=== PATIENT | male | born 1960 | race Caucasian/White ===

== ENCOUNTER 2016-11-23 09:25 | Emergency (ER) | payer OTHER ==
[2016-11-23 09:41] VITALS: TEMP 98.9
--- NOTE | 2016-11-23 09:51 | ED ---
URI HPI - General Chief Complaint: Upper Respiratory Infection Stated Complaint: cough Time Seen by Provider: 11/23/16 09:43 Source: patient, RN notes reviewed Mode of arrival: ambulatory Limitations: no limitations - History of Present Illness Initial Comments: 56-year-old male presents emergency Department chief complaint cough and congestion. Patient states since it lasted for days. Patient states that he primarily a sinus congestion states he has a cough which is worse at nighttime. Denies any shortness of breath or any chest pain. Denies nausea, vomiting diarrhea constipation. Patient states she's been taking some Robitussin with some relief. Patient denies any ear pain or sore throat. Patient states the drainage is clear to yellowish. Patient denies fever, chills. - Related Data Home Medications Medication Instructions Recorded Confirmed Atorvastatin [Lipitor] 40 mg PO HS 06/28/15 06/30/15 Carvedilol [Coreg] 3.125 mg PO BID 06/28/15 06/30/15 Furosemide [Lasix] 20 mg PO DAILY 06/28/15 06/30/15 Lisinopril [Zestril] 10 mg PO DAILY 06/28/15 06/30/15 Previous Rx's Medication Instructions Recorded Aspirin 81 mg PO DAILY #30 chew 08/05/14 Spironolactone [Aldactone] 50 mg PO DAILY #30 tab 08/05/14 Amoxicillin/Potassium Clav 1 tab PO Q12HR #20 tab 11/23/16 [Augmentin 875-125 Tablet] methylPREDNISolone [Medrol Dose 4 mg PO DIRECTED #1 pack 11/23/16 Pack] Allergies Allergy/AdvReac Type Severity Reaction Status Date / Time No Known Allergies Allergy Verified 11/23/16 09:38 Review of Systems ROS Statement: Those systems with pertinent positive or pertinent negative responses have been documented in the HPI. ROS Other: All systems not noted in ROS Statement are negative. Past Medical History Past Medical History: No Reported History Additional Past Medical History / Comment(s): see Dr Mikael Mariee&Samson, History of Any Multi-Drug Resistant Organisms: None Reported Past Surgical History: Heart Catheterization, Hernia Repair Additional Past Surgical History / Comment(s): inguinal hernia repair, esophageal dilation, defibrillator Past Anesthesia/Blood Transfusion Reactions: No Reported Reaction Past Psychological History: No Psychological Hx Reported Smoking Status: Never smoker Past Alcohol Use History: Occasional Past Drug Use History: None Reported - Past Family History Mother Additional Family Medical History / Comment(s): mother had stent placed in 2006 Father Family Medical History: Cancer General Exam Limitations: no limitations General appearance: alert, in no apparent distress Head exam: Present: atraumatic, normocephalic, normal inspection Eye exam: Present: normal appearance, PERRL, EOMI. Absent: scleral icterus, conjunctival injection, periorbital swelling ENT exam: Present: normal oropharynx, mucous membranes moist, TM's normal bilaterally, normal external ear exam. Absent: normal exam (Rhinorrhea) Neck exam: Present: normal inspection, full ROM. Absent: tenderness, meningismus, lymphadenopathy Respiratory exam: Present: normal lung sounds bilaterally. Absent: respiratory distress, wheezes, rales, rhonchi, stridor Cardiovascular Exam: Present: regular rate, normal rhythm, normal heart sounds. Absent: systolic murmur, diastolic murmur, rubs, gallop, clicks Neurological exam: Present: alert, oriented X3, CN II-XII intact Skin exam: Present: warm, dry, intact, normal color. Absent: rash Course Vital Signs 11/23/16 09:38 Temperature 98.9 F Pulse Rate 87 Respiratory 18 Rate Blood Pressure 104/69 O2 Sat by Pulse 96 Oximetry Medical Decision Making - Medical Decision Making 56-year-old male presented for cough and congestion. Patient give for acute sinusitis and acute bronchitis. Patient was discharged with antibiotics, steroids. Return parameters discussed. Disposition Clinical Impression: Bronchitis, Sinusitis Disposition: HOME SELF-CARE Condition: Stable Instructions: Upper Respiratory Infection (ED) Additional Instructions: Please return to the Emergency Department if symptoms worsen or any other concerns. Prescriptions: Amoxicillin/Potassium Clav [Augmentin 875-125 Tablet] 1 tab PO Q12HR #20 tab methylPREDNISolone [Medrol Dose Pack] 4 mg PO DIRECTED #1 pack Time of Disposition: 10:14
--- NOTE | 2016-11-23 10:12 | XR ---
EXAMINATION TYPE: XR chest 2V DATE OF EXAM: 11/23/2016 10:00 AM HISTORY: Cough/pain. REFERENCE: Previous study dated 08/04/2014/. FINDINGS: The patient device projects over the left lower chest. The heart is mildly enlarged. There is scarring or atelectasis at the left lung base. The right lung is clear. Pleural spaces are clear. IMPRESSION: 1. CARDIOMEGALY. 2. SCARRING VERSUS ATELECTASIS LEFT LUNG BASE.
[2016-11-23 10:31] VITALS: BP 113/77; PULSE 65; RESP 16
== END 2016-11-23 10:31 | disposition home or self-care (01) ==
LOC: EC 09:25
DX: J20.9 Acute bronchitis, unspecified (principal); J01.90 Acute sinusitis, unspecified; Z79.899 Other long term (current) drug therapy; Z98.61 Coronary angioplasty status
CPT/HCPCS: 71020; 99283

== ENCOUNTER 2018-08-28 14:21 | Emergency (ER) | payer BC, OTHER ==
[2018-08-28 14:56] VITALS: RESP 18
[2018-08-28] MEDS ORDERED: SODIUM CHLORIDE 0.9% 1,000 ML IV STA (15:57)
[2018-08-28] MEDS ORDERED: ONDANSETRON 4 MG/2 ML VIAL IVP STA (15:58)
--- NOTE | 2018-08-28 16:45 | ED ---
Nausea/Vomiting/Diarrhea HPI - General Chief complaint: Nausea/Vomiting/Diarrhea Stated complaint: Diarrhea Time Seen by Provider: 08/28/18 15:24 Source: patient, RN notes reviewed, old records reviewed Mode of arrival: ambulatory Limitations: no limitations - History of Present Illness Initial comments: Patient is a 57-year-old male presents emergency Department chief complaint of nausea and vomiting 2 days. Patient had diarrhea for the past week. He states he also of diarrhea today. Patient reports that he has no abdominal pain. Patient is concerned because he does have a cardiac history that if his electrolytes are change due to dehydration that could affect his heart. Patient reports that he has no chest pain or shortness of breath. Patient denies any fevers or chills. No history of traveling or sick contacts that he is aware of. No history of gastrointestinal illnesses such as Crohn's or ulcerative colitis. No bloody diarrhea and no bloody emesis was noted. Patient denies any recent fever, chills, shortness of breath, chest pain, back pain, numbness or tingling, dysuria or hematuria, headaches or visual changes , or any other current symptoms - Related Data Home Medications Medication Instructions Recorded Confirmed Atorvastatin [Lipitor] 40 mg PO HS 06/28/15 08/28/18 Furosemide [Lasix] 20 mg PO DAILY 06/28/15 08/28/18 Lisinopril [Zestril] 10 mg PO DAILY 06/28/15 08/28/18 Carvedilol [Coreg] 3.125 mg PO BID 08/28/18 08/28/18 Spironolactone 50 mg PO DAILY 08/28/18 08/28/18 Previous Rx's Medication Instructions Recorded Aspirin 81 mg PO DAILY #30 chew 08/05/14 Dicyclomine [Bentyl] 10 mg PO TID #12 capsule 08/28/18 Ondansetron [Zofran ODT] 4 mg PO Q8HR #14 tab 08/28/18 Allergies Allergy/AdvReac Type Severity Reaction Status Date / Time No Known Allergies Allergy Verified 08/28/18 16:46 Review of Systems ROS Statement: Those systems with pertinent positive or pertinent negative responses have been documented in the HPI. ROS Other: All systems not noted in ROS Statement are negative. Past Medical History Past Medical History: No Reported History Additional Past Medical History / Comment(s): see Dr Mikael Mariee&P, History of Any Multi-Drug Resistant Organisms: None Reported Past Surgical History: Heart Catheterization, Hernia Repair Additional Past Surgical History / Comment(s): inguinal hernia repair, esophageal dilation, defibrillator Past Anesthesia/Blood Transfusion Reactions: No Reported Reaction Past Psychological History: No Psychological Hx Reported Smoking Status: Never smoker Past Alcohol Use History: Occasional Past Drug Use History: None Reported - Past Family History Mother Additional Family Medical History / Comment(s): mother had stent placed in 2006 Father Family Medical History: Cancer General Exam - General Exam Comments Initial Comments: 57-year-old male. Alert and oriented. No acute distress. Limitations: no limitations General appearance: alert, in no apparent distress Head exam: Present: atraumatic, normocephalic, normal inspection Eye exam: Present: normal appearance, PERRL, EOMI. Absent: scleral icterus, conjunctival injection, periorbital swelling ENT exam: Present: normal exam, mucous membranes moist Neck exam: Present: normal inspection. Absent: tenderness, meningismus, lymphadenopathy Respiratory exam: Present: normal lung sounds bilaterally. Absent: respiratory distress, wheezes, rales, rhonchi, stridor Cardiovascular Exam: Present: regular rate, normal rhythm, normal heart sounds. Absent: systolic murmur, diastolic murmur, rubs, gallop, clicks GI/Abdominal exam: Present: soft, normal bowel sounds. Absent: distended, tenderness, guarding, rebound, rigid Extremities exam: Present: normal inspection, full ROM, normal capillary refill. Absent: tenderness, pedal edema, joint swelling, calf tenderness Back exam: Present: normal inspection Neurological exam: Present: alert, oriented X3, CN II-XII intact Psychiatric exam: Present: normal affect, normal mood Skin exam: Present: warm, dry, intact, normal color. Absent: rash Course Vital Signs 08/28/18 14:54 Temperature 98 F Pulse Rate 83 Respiratory 18 Rate Blood Pressure 113/78 O2 Sat by Pulse 95 Oximetry Medical Decision Making - Medical Decision Making Patient's a 57-year-old male presents with vomiting episode today, but complains of no abdominal pain. He's had diarrhea for the past week. He's had no diarrhea episodes while in the emergency room. The second Patient given a liter of fluids, and Zofran. Blood work was obtained. Blood work was reviewed and unremarkable. Has no other symptoms or complaints at this time. Discussed at this time Patient will be given a prescription for Bentyl to help with diarrhea as well as Zofran for vomiting episodes. Patient has a close follow- up with primary care provider. All questions answered. - Lab Data Result diagrams: 08/28/18 16:20 08/28/18 16:20 Lab Results 08/28/18 08/28/18 08/28/18 Range/Units 16:20 16:20 16:20 WBC 7.6 (3.8-10.6) k/uL RBC 4.65 (4.30-5.90) m/uL Hgb 14.6 (13.0-17.5) gm/dL Hct 42.9 (39.0-53.0) % MCV 92.1 (80.0-100.0) fL MCH 31.3 (25.0-35.0) pg MCHC 34.0 (31.0-37.0) g/dL RDW 13.4 (11.5-15.5) % Plt Count 160 (150-450) k/uL Neutrophils % 74 % Lymphocytes % 14 % Monocytes % 6 % Eosinophils % 4 % Basophils % 0 % Neutrophils # 5.7 (1.3-7.7) k/uL Lymphocytes # 1.1 (1.0-4.8) k/uL Monocytes # 0.4 (0-1.0) k/uL Eosinophils # 0.3 (0-0.7) k/uL Basophils # 0.0 (0-0.2) k/uL Sodium 138 (137-145) mmol/L Potassium 4.3 (3.5-5.1) mmol/L Chloride 105 (98-107) mmol/L Carbon Dioxide 24 (22-30) mmol/L Anion Gap 9 mmol/L BUN 21 H (9-20) mg/dL Creatinine 0.87 (0.66-1.25) mg/dL Est GFR (CKD-EPI)AfAm >90 (>60 ml/min/1.73 sqM) Est GFR (CKD-EPI)NonAf >90 (>60 ml/min/1.73 sqM) Glucose 115 H (74-99) mg/dL Calcium 9.2 (8.4-10.2) mg/dL Total Bilirubin 1.6 H (0.2-1.3) mg/dL AST 70 H (17-59) U/L ALT 40 (21-72) U/L Alkaline Phosphatase 64 (38-126) U/L Total Protein 6.9 (6.3-8.2) g/dL Albumin 4.0 (3.5-5.0) g/dL Amylase 54 (30-110) U/L Lipase 42 (23-300) U/L Urine Color Yellow Urine Appearance Clear (Clear) Urine pH 5.5 (5.0-8.0) Ur Specific [place] 1.028 (1.001-1.035) Urine Protein Trace H (Negative) Urine Glucose (UA) Negative (Negative) Urine Ketones Negative (Negative) Urine Blood Negative (Negative) Urine Nitrite Negative (Negative) Urine Bilirubin Negative (Negative) Urine Urobilinogen 2.0 (<2.0) mg/dL Ur Leukocyte Esterase Negative (Negative) Disposition Clinical Impression: Nausea & vomiting, Diarrhea Disposition: HOME SELF-CARE Condition: Good Instructions: Acute Nausea and Vomiting (ED), Acute Diarrhea (ED) Additional Instructions: Patient has a rest, follow-up with primary care provider. Take medications as prescribed. Return to emergency department if any alarming signs or symptoms occur. Prescriptions: Dicyclomine [Bentyl] 10 mg PO TID #12 capsule Ondansetron [Zofran ODT] 4 mg PO Q8HR #14 tab Is patient prescribed a controlled substance at d/c from ED?: No Referrals: None,Stated [Primary Care Provider] - 1-2 days Symone Hall MD [STAFF PHYSICIAN] - 1-2 days Time of Disposition: 17:10
[2018-08-28 16:51] LABS: Appearance,Urine Clear (Clear); Bilirubin,Urine Negative (Negative); Blood,Urine Negative (Negative); Color,Urine Yellow; Glucose,Urine (UA) Negative (Negative); Ketones,Urine Negative (Negative); Leukocyte Esterase,Urine Negative (Negative); Nitrite,Urine Negative (Negative); PH, Urine 5.5 (5.0-8.0); Protein,Urine Trace (Negative); Specific Gravity,Urine 1.028 (1.001-1.035)
[2018-08-28 17:00] LABS: ALT 40 U/L (21-72); AST 70 U/L (17-59); Alkaline Phosphatase 64 U/L (38-126); Amylase 54 U/L (30-110); Anion Gap 9 mmol/L; Blood Urea Nitrogen 21 mg/dL (9-20); Calcium 9.2 mg/dL (8.4-10.2); Carbon Dioxide 24 mmol/L (22-30); Chloride 105 mmol/L (98-107); Glucose 115 mg/dL (74-99); Lipase 42 U/L (23-300); Potassium 4.3 mmol/L (3.5-5.1); Sodium 138 mmol/L (137-145); Total Bilirubin 1.6 mg/dL (0.2-1.3); Total Protein 6.9 g/dL (6.3-8.2)
[2018-08-28 17:02] LABS: Basophils % (A) 0 %; Eosinophils # (A) 0.3 k/uL (0-0.7); Eosinophils % (A) 4 %; HCT 42.9 % (39.0-53.0); HGB 14.6 gm/dL (13.0-17.5); Lymphocytes # (A) 1.1 k/uL (1.0-4.8); Lymphocytes % (A) 14 %; MCH 31.3 pg (25.0-35.0); MCV 92.1 fL (80.0-100.0); Monocytes # (A) 0.4 k/uL (0-1.0); Monocytes % (A) 6 %; Neutrophils # (A) 5.7 k/uL (1.3-7.7); Neutrophils % (A) 74 %; Platelet Count 160 k/uL (150-450); RBC 4.65 m/uL (4.30-5.90); RDW 13.4 % (11.5-15.5); WBC 7.6 k/uL (3.8-10.6)
[2018-08-28 17:39] VITALS: BP 116/69; PULSE 76; TEMP 97.9
== END 2018-08-28 17:39 | disposition home or self-care (01) ==
LOC: EC 14:21
DX: R11.2 Nausea with vomiting, unspecified (principal); R19.7 Diarrhea, unspecified; Z79.899 Other long term (current) drug therapy; Z86.79 Personal history of other diseases of the circulatory system; Z95.818 Presence of other cardiac implants and grafts
CPT/HCPCS: 36415; 80053; 82150; 83690; 85025; 81003; 99284; 96374; 96361; J2405

== ENCOUNTER 2020-06-16 08:55 | Emergency (ER) | payer BC, OTHER ==
[2020-06-16 09:09] VITALS: BP 134/85; PULSE 72; RESP 18; TEMP 99
[2020-06-16] MEDS ORDERED: FLUORESCEIN STRIPS 1 MG STRIP RIGHT EYE ONE (09:11)
[2020-06-16] MEDS ORDERED: PROPARACAINE 0.5% OPHTH DROPS 15 ML BTL RIGHT EYE STA (09:11)
--- NOTE | 2020-06-16 09:57 | ED ---
Eye Problem HPI - General Chief complaint: Eye Problems Stated complaint: [facility] - Eye Injury Time Seen by Provider: 06/16/20 09:11 Source: patient Mode of arrival: ambulatory Limitations: no limitations - History of Present Illness Initial comments: 59yo male presenting for cc of right eye redness. Pt states his right eye has been red and feels like there is an eyelash in there. Patient denies vision loss. Denies contact lens use. 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 Denies LOC, denies thinners. Denies headaches, vomiting, nausea, fevers, neck pain. Patient denies eye drainage, denies flashes of light or floaters. Patient denies additional complaints. Patient appears well nontoxic in no acute distress. - Related Data Home Medications Medication Instructions Recorded Confirmed Atorvastatin [Lipitor] 40 mg PO HS 06/28/15 08/28/18 Furosemide [Lasix] 20 mg PO DAILY 06/28/15 08/28/18 lisinopriL [Zestril] 10 mg PO DAILY 06/28/15 08/28/18 Spironolactone 50 mg PO DAILY 08/28/18 08/28/18 carvediloL [Coreg] 3.125 mg PO BID 08/28/18 08/28/18 Previous Rx's Medication Instructions Recorded Aspirin 81 mg PO DAILY #30 chew 08/05/14 Dicyclomine [Bentyl] 10 mg PO TID #12 capsule 08/28/18 Ondansetron [Zofran ODT] 4 mg PO Q8HR #14 tab 08/28/18 Erythromycin Ophth Oint [Romycin 1 applic RIGHT EYE QID 5 Days #30 06/16/20 Ophth Oint] gm Allergies Allergy/AdvReac Type Severity Reaction Status Date / Time No Known Allergies Allergy Verified 06/16/20 09:08 Review of Systems ROS Statement: Those systems with pertinent positive or pertinent negative responses have been documented in the HPI. ROS Other: All systems not noted in ROS Statement are negative. Past Medical History Past Medical History: Coronary Artery Disease (CAD) Additional Past Medical History / Comment(s): low ef - 19% History of Any Multi-Drug Resistant Organisms: None Reported Past Surgical History: Heart Catheterization, Hernia Repair, Pacemaker Additional Past Surgical History / Comment(s): inguinal hernia repair, esophageal dilation, defibrillator Past Anesthesia/Blood Transfusion Reactions: No Reported Reaction Past Psychological History: No Psychological Hx Reported Smoking Status: Never smoker Past Alcohol Use History: Occasional Past Drug Use History: None Reported - Past Family History Mother Additional Family Medical History / Comment(s): mother had stent placed in 2006 Father Family Medical History: Cancer General Exam - General Exam Comments Initial Comments: General: The patient is awake and alert, in no distress, and does not appear acutely ill. Eye: +3 mm pupils are equal, round and reactive to light, extra-ocular movements are intact. No nystagmus. No signs of icterus. IOP 18 OD, 19OS, no subconjunctival hemorrhage, mild right eye injection, no swelling or palpable defect of the orbit Ears, nose, mouth and throat: There are moist mucous membranes and no oral lesions. Neck: The neck is supple, there is no tenderness or JVD. Cardiovascular: There is a regular rate and rhythm. No murmur, rub or gallop is appreciated. Respiratory: Lungs are clear to auscultation, respirations are non-labored, breath sounds are equal. No wheezes, stridor, rales, or rhonchi. Musculoskeletal: Normal ROM, no tenderness. Strength 5/5. Sensation intact. Radial pulses equal bilaterally 2+. Neurological: A&O x 3. CN II-XII intact grossly, There are no obvious motor or sensory deficits. Coordination appears grossly intact. Speech is normal. Skin: Skin is warm and dry and no rashes or lesions are noted. Psychiatric: Cooperative, appropriate mood & affect, normal judgment. Limitations: no limitations Course Vital Signs 06/16/20 09:05 Temperature 99.0 F Pulse Rate 72 Respiratory 18 Rate Blood Pressure 134/85 O2 Sat by Pulse 98 Oximetry Medical Decision Making - Medical Decision Making 59yo male presenting for cc of right eye irritation. no drainge. injection noted. no FB. no uptake of fluorescein. the itchiness/discomfort relievd with proparacaine. Patient VA intact. IOP WNL. Denies direct eye trauma. No obvious signs of trauma. Patient states he is not worried about his head or being head butted just thought that maybe there was a connect with the mild right eye irritations. Refused head imaging. Patient will be initiated on antibiotics topically. Dr Westbrook is agreeable to care plan and discharge. Disposition Clinical Impression: Conjunctival injection Disposition: HOME SELF-CARE Condition: Good Instructions (If sedation given, give patient instructions): Conjunctivitis (ED) Additional Instructions: Please use medication as discussed. Please follow-up with ophthalmology in 2 days Please return to emergency room if the symptoms increase or worsen or for any other concerns. Prescriptions: Erythromycin Ophth Oint [Romycin Ophth Oint] 1 applic RIGHT EYE QID 5 Days #30 gm Is patient prescribed a controlled substance at d/c from ED?: No Referrals: Gumaro Evans MD [Primary Care Provider] - 1-2 days Time of Disposition: 09:57
== END 2020-06-16 10:05 | disposition home or self-care (01) ==
LOC: EC 08:55
DX: H11.431 Conjunctival hyperemia, right eye (principal); I25.10 Atherosclerotic heart disease of native coronary artery without angina pectoris; Z79.02 Long term (current) use of antithrombotics/antiplatelets; Z79.899 Other long term (current) drug therapy; Z95.0 Presence of cardiac pacemaker; Y92.69 Other specified industrial and construction area as the place of occurrence of the external cause; Y99.0 Civilian activity done for income or pay
CPT/HCPCS: 99283

== ENCOUNTER → 2022-09-12 | Outpatient (CLI) | payer OTHER ==
[2022-09-12 16:38] LABS: African American GFR (CKD) 92.2 (60.0-200.0); Anion Gap 11.3 mmol/L (10.00-18.00); BUN/Creat Ratio 9.66 Ratio (12.00-20.00); Blood Urea Nitrogen 9.9 mg/dL (9.0-27.0); Calcium 9.6 mg/dL (8.7-10.3); Carbon Dioxide 24.4 mmol/L (20.0-27.5); Magnesium 1.9 mg/dL (1.5-2.4); Non-African American GFR(CKD) 79.5 (60.0-200.0)
== END | disposition home or self-care (01) ==
LOC: LABWHC1 08:41
PROVIDERS: ATTEND Nurse Practitioner Adult Health
DX: I50.22 Chronic systolic (congestive) heart failure (principal)
CPT/HCPCS: 36415; 80048; 83735